=== PATIENT | male | born 1970 | race Caucasian/White ===

== ENCOUNTER 2020-08-08 11:49 | Emergency (ER) | payer BC, SELFPAY ==
[2020-08-08 11:55] VITALS: BP 150/90; PULSE 105; RESP 16; TEMP 36.4; O2SAT 98
[2020-08-08 13:37] VITALS: BP 150/107; PULSE 96; RESP 18; TEMP 36.9; O2SAT 98; O2SAT 99
--- NOTE | 2020-08-08 13:59 | ED.GENADULT ---
HPI - General Adult General Chief complaint: Upper Respiratory Infection Stated complaint: wants a covid test Time Seen by Provider: 08/08/20 13:22 Source: patient Mode of arrival: ambulatory Limitations: no limitations History of Present Illness HPI narrative: Patient is a 50-year-old male who presents to emergency department for evaluation of having had nausea and vomiting yesterday which has resolved. Patient notes he is feeling much better at this time had chills and sweats yesterday which have resolved. Patient on arrival to emergency department is in no distress denying any pain. Patient notes that his wanted him to be tested for Covid. Patient denies URI symptoms sick contacts or other complaints has not been vaccinated nor has he been exposed to Covid far as he knows Related Data Allergies Allergy/AdvReac Type Severity Reaction Status Date / Time No Known Allergies Allergy Mild Verified 08/08/20 11:57 Review of Systems Review of Systems: All systems reviewed & are unremarkable except as noted in HPI and below PMFSH Social History Social History (Updated 08/08/20 @ 14:00 by Freddy Salcedo PA-C) Smoking status: Never smoker Gender identity (if verbalized by the patient): Male Exam Narrative: Exam Narrative: GENERAL: Well-appearing, well-nourished, and in no acute distress. HEAD: Normocephalic, atraumatic. EYES: PERRLA and EOMI. ENT: Nares clear, no rhinorrhea or epistaxis. Mucous membranes moist. CHEST: Clear to auscultation. No respiratory distress. No wheezes rales or rhonchi HEART: Regular rate and rhythm. No murmur heard. Normal peripheral pulses. ABDOMEN: Soft, nontender, nondistended EXTREMITIES: Normal range of motion. No edema. SKIN: Warm, dry, no rash. NEURO: No focal deficits. Alert and oriented x3. Cranial nerves II through XII grossly intact PSYCH: Normal mood and affect. Course Course Emergency Course: Patient in the room in no distress aware of case findings treatment plan diagnosis asymptomatic nontender abdomen will be swabbed for Covid sent home agrees to follow with primary care to obtain his results and agrees to return if symptoms worsen tolerating p.o. intake ABCs and vital signs intact and stable Vital Signs Vital signs: Vital Signs Temperature 97.5 F L 08/08/20 11:55 Pulse Rate 105 H 08/08/20 11:55 Respiratory Rate 16 08/08/20 11:55 Blood Pressure 150/90 H 08/08/20 11:55 Pulse Oximetry 98 08/08/20 11:55 Temperature 98.4 F 08/08/20 13:37 Pulse Rate 96 08/08/20 13:37 Respiratory Rate 18 08/08/20 13:37 Blood Pressure 150/107 H 08/08/20 13:37 Pulse Oximetry 99 08/08/20 13:37 Medical Decision Making MDM Narrative Medical decision making narrative: Patient with all her presentation after having vomiting yesterday was symptoms resolved no distress agreeing to follow-up as instructed will return if symptoms worsen Vital Signs Vital Signs: Vital Signs Temperature 97.5 F L 08/08/20 11:55 Pulse Rate 105 H 08/08/20 11:55 Respiratory Rate 16 08/08/20 11:55 Blood Pressure 150/90 H 08/08/20 11:55 Pulse Oximetry 98 08/08/20 11:55 Temperature 98.4 F 08/08/20 13:37 Pulse Rate 96 08/08/20 13:37 Respiratory Rate 18 08/08/20 13:37 Blood Pressure 150/107 H 08/08/20 13:37 Pulse Oximetry 99 08/08/20 13:37 Lab Data Labs: Lab Results 08/08/20 Range/Units 13:44 SARS-CoV-2 RNA (RT-PCR) Pending Discharge Plan Discharge Clinical Impression: Vomiting Patient Disposition: Home, Self-Care Condition: Stable Instructions: Antibiotic Form, COVID-19 (Coronavirus Disease 2019) (ED) Additional Instructions: Follow up with your primary care provider within 1-2 days to set up for reevaluation and to obtain your COVID-19 result. Go to ER for shortness of breath, difficulty breathing, chest pain, fever/chills, weakness, nauseau/vomitting, etc. or any other concerns. Self quarantine until you have r
[2020-08-09 19:28] LABS: SARS-CoV-2 RNA PCR Negative
== END 2020-08-08 14:23 | disposition home or self-care (01) ==
PROVIDERS: Emergency Medicine Emergency Medical Services; Emergency Provider Family Medicine; PCP Family Medicine
DX: R11.10 Vomiting, unspecified (principal); Z20.822 Contact with and (suspected) exposure to COVID-19
CPT/HCPCS: 99283; C9803; U0003; U0005

== ENCOUNTER 2025-02-12 14:17 | Outpatient (CLI) | payer OTHER, SELFPAY ==
[2025-02-12 15:48] LABS: Anion Gap 8 mmol/L (4-12); Blood Urea Nitrogen 18 mg/dL (9-20); Calcium 9.2 mg/dL (8.4-10.2); Carbon Dioxide 27 mmol/L (22-30); Chloride 102 mmol/L (98-107); Estimated Glomerular Filt Rate > 60; Glucose 106 mg/dL (65-110); Potassium 3.6 mmol/L (3.4-5.0); Sodium 137 mmol/L (137-145)
== END 2025-02-12 14:18 | disposition home or self-care (01) ==
LOC: ANHLAB 14:25
PROVIDERS: PCP Family Medicine; Visit Provider Family Medicine
DX: I10 Essential (primary) hypertension (principal)
CPT/HCPCS: 36415; 80048